=== PATIENT | female | born 2000 | race Caucasian/White ===

== ENCOUNTER 2023-09-19 20:15 | Emergency (ER) | payer MEDICAID ==
[2023-09-19] MEDS: ALPRAZolam 0.5 MG Tab PO ONE (21:16)
[2023-09-19 21:19] VITALS: BP 115/76; PULSE 78
== END 2023-09-19 21:19 | disposition home or self-care (01) ==
LOC: MW.ED 20:15
DX: F41.9 Anxiety disorder, unspecified (principal); I10 Essential (primary) hypertension; J40 Bronchitis, not specified as acute or chronic; Z79.899 Other long term (current) drug therapy; Z79.891 Long term (current) use of opiate analgesic; Z88.0 Allergy status to penicillin; Z91.048 Other nonmedicinal substance allergy status; Z91.040 Latex allergy status
CPT/HCPCS: 99283; A9270